=== PATIENT | male | born 1950 | race Two or more races ===

== ENCOUNTER 2019-03-04 16:28 | Inpatient (IN) | payer MEDICARE, MEDICAID ==
[~2019-03-04] VITALS: Ht 165.1 cm; Wt 84.8 kg
[2019-03-04] MEDS ORDERED: GENTAMICIN 80MG PREMIX 100 ML IV ONE (20:15)
[2019-03-04] MEDS ORDERED: VANCOMYCIN 1 G PREMIX 200 ML IV ONE (20:15)
[2019-03-04 21:08] LABS: EOSINOPHILS % 7.2 % (0.0-5.0); HEMATOCRIT. 29.4 % (42.0-52.0); HEMOGLOBIN. 9.5 g/dL (14.0-18.0); LYMPHOCYTES % 22.8 % (20.0-50.0); MEAN CORPUSCULAR HEMOGLOBIN 31.6 pg (28.0-32.0); MEAN CORPUSCULAR VOLUME 97.2 fL (80.0-94.0); MEAN PLATELET VOLUME 7.5 fl (7.4-10.4); PLATELET 254 x1000/uL (130-400); RED BLOOD CELL COUNT 3.02 mill/uL (4.7-6.1); RED CELL DISTRIBUTION WIDTH 16.5 % (11.6-14.6)
[2019-03-04 21:12] LABS: CHLORIDE 110 mEq/L (98-107)
[2019-03-04 21:13] LABS: PROTHROMBIN TIME 10.7 sec (9.6-11.0)
[2019-03-04] MEDS ORDERED: ONDANSETRON HCL 4MG/2ML INJ IV PRN (22:45)
[2019-03-04] MEDS ORDERED: MORPHINE SULFATE 2 MG/ML CPJ (NOT FOR IM USE) IV PRN (22:45)
[2019-03-04] MEDS ORDERED: HYDROCODONE/ACETAMINOPHEN 5/325MG TABLET PO PRN (22:45)
[2019-03-04] MEDS ORDERED: CLONIDINE 0.1MG TABLET PO PRN (22:45)
[2019-03-04 22:52] LABS: CLARITY URINE TURBID (CLEAR); COLOR URINE YELLOW (YELLOW); KETONES URINE NEGATIVE (NEGATIVE); LEUKOCYTE ESTERASE URINE 3+ (NEGATIVE); NITRITE URINE NEGATIVE (NEGATIVE); OCCULT BLOOD URINE TRACE (NEGATIVE); PROTEIN URINE 1+ (NEGATIVE); UROBILINOGEN URINE 0.2 E.U./dL (0.2-1.0)
[2019-03-04] MEDS ORDERED: CEFTRIAXONE 1 G PREMIX 50 ML IV ONE (23:15)
[2019-03-05 12:00] VITALS: BP_SYST 107; BP_SYST 164; BP_DIAS 57; BP_DIAS 82
[2019-03-05] MEDS ORDERED: NIFEDIPINE XL 30MG TAB PO SCH (13:30)
[2019-03-05] MEDS ORDERED: LIDOCAINE HCL 1% 20ML VIAL (Pyxis) INJ ONE (13:56)
[2019-03-05] MEDS ORDERED: SODIUM BICARBONATE 4% (2.4MEQ) 5ML VIAL IV ONE (13:56)
[2019-03-05] MEDS ORDERED: VANCOMYCIN 500 MG PREMIX 100 ML IV NR (14:00)
[2019-03-05] MEDS: ENOXAPARIN 30MG/0.3ML SYR SUBCUT SCH (15:13)
[2019-03-05] MEDS: THIAMINE HCL 100MG TABLET PO SCH (15:13)
[2019-03-05 16:00] VITALS: BP 110/64
[2019-03-05] MEDS ORDERED: FURO40TA5 MT (16:09)
[2019-03-05] MEDS ORDERED: OMEG-119 MT (16:09)
[2019-03-05] MEDS ORDERED: ONDA4TAB5 MT (16:09)
[2019-03-05] MEDS ORDERED: MELA1TAB28 MT (16:09)
[2019-03-05] MEDS ORDERED: VALS80TA30 MT (16:09)
[2019-03-05] MEDS ORDERED: TRU10 EACHEYE (16:09)
[2019-03-05] MEDS ORDERED: DOCU100T MT (16:09)
[2019-03-05] MEDS ORDERED: BISA10SU62 RC (16:09)
[2019-03-05] MEDS ORDERED: NEPVIT MT (16:09)
[2019-03-05] MEDS ORDERED: FERR-71 MT (16:09)
[2019-03-05] MEDS ORDERED: TAMS-11 MT (16:09)
[2019-03-05] MEDS ORDERED: POLY119P18 MT (16:09)
[2019-03-05] MEDS ORDERED: IPRA3AMP9 HHN (16:09)
[2019-03-05] MEDS ORDERED: HYDR-4133 MT (16:09)
[2019-03-05] MEDS ORDERED: GABA-531 MT (16:09)
[2019-03-05] MEDS ORDERED: TOPUD MT (16:09)
[2019-03-05] MEDS ORDERED: LORA1TAB MT (16:09)
[2019-03-05] MEDS ORDERED: METO25TA6 MT (16:09)
[2019-03-05] MEDS ORDERED: ZINC220T4 MT (16:09)
[2019-03-05] MEDS ORDERED: TIMO5DRO32 EACHEYE (16:09)
[2019-03-05] MEDS ORDERED: DIPH25CA83 MT (16:12)
[2019-03-05 20:00] VITALS: BP 115/63
[2019-03-05] MEDS: CEFTRIAXONE 1 G PREMIX 50 ML IV SCH (23:50)
[2019-03-06] VITALS: BP 118/60
[2019-03-06 04:00] VITALS: BP 124/74
[2019-03-06 07:19] LABS: BASOPHILS % 1.5 % (0.0-2.0); EOSINOPHILS % 9.5 % (0.0-5.0); HEMATOCRIT. 29.4 % (42.0-52.0); HEMOGLOBIN. 9.6 g/dL (14.0-18.0); LYMPHOCYTES % 19.5 % (20.0-50.0); MEAN CORPUSCULAR HEMOGLOBIN 31.3 pg (28.0-32.0); MEAN CORPUSCULAR VOLUME 95.9 fL (80.0-94.0); MEAN PLATELET VOLUME 7.6 fl (7.4-10.4); MONOCYTES % 9.6 % (2.0-8.0); NEUTROPHILS % 59.9 % (40.0-76.0); PLATELET 220 x1000/uL (130-400); RED BLOOD CELL COUNT 3.06 mill/uL (4.7-6.1); RED CELL DISTRIBUTION WIDTH 16.3 % (11.6-14.6)
[2019-03-06 08:00] VITALS: BP 139/72
[2019-03-06] MEDS: ENOXAPARIN 30MG/0.3ML SYR SUBCUT SCH (09:18)
[2019-03-06] MEDS: THIAMINE HCL 100MG TABLET PO SCH (09:19)
[2019-03-06] MEDS: NIFEDIPINE XL 60MG TAB PO SCH (09:19)
[2019-03-06] MEDS ORDERED: FLUCONAZOLE 200MG/100ML PREMIX IV ONE (10:30)
[2019-03-06 12:00] VITALS: BP 142/73
[2019-03-06] MEDS ORDERED: FLUCONAZOLE 200 MG/100ML BAG 100 ML IV SCH (12:00)
[2019-03-06 16:48] VITALS: BP 134/67
[2019-03-06 20:00] VITALS: BP 102/63
[2019-03-07] VITALS: BP 117/68
[2019-03-07] MEDS: CEFTRIAXONE 1 G PREMIX 50 ML IV SCH (00:27)
[2019-03-07 04:00] VITALS: BP 103/58
[2019-03-07 06:24] LABS: BASOPHILS % 1.3 % (0.0-2.0); EOSINOPHILS % 7.4 % (0.0-5.0); HEMATOCRIT. 29.1 % (42.0-52.0); HEMOGLOBIN. 9.8 g/dL (14.0-18.0); LYMPHOCYTES % 25.5 % (20.0-50.0); MEAN CORPUSCULAR HEMOGLOBIN 32.3 pg (28.0-32.0); MEAN CORPUSCULAR VOLUME 96.2 fL (80.0-94.0); MEAN PLATELET VOLUME 7.8 fl (7.4-10.4); MONOCYTES % 9.6 % (2.0-8.0); NEUTROPHILS % 56.2 % (40.0-76.0); PLATELET 194 x1000/uL (130-400); RED BLOOD CELL COUNT 3.03 mill/uL (4.7-6.1); RED CELL DISTRIBUTION WIDTH 16.3 % (11.6-14.6)
[2019-03-07 08:00] VITALS: BP 132/71
[2019-03-07] MEDS ORDERED: INSULIN LISPRO 100 UNITS/ML SUBCUT NR (09:30)
[2019-03-07] MEDS: THIAMINE HCL 100MG TABLET PO SCH (09:54)
[2019-03-07] MEDS: ENOXAPARIN 30MG/0.3ML SYR SUBCUT SCH (09:54)
[2019-03-07] MEDS: NIFEDIPINE XL 60MG TAB PO SCH (09:54)
[2019-03-07 12:00] VITALS: BP 103/53
[2019-03-07 16:00] VITALS: BP 125/67
[2019-03-07] MEDS ORDERED: VANCOMYCIN 750 MG PREMIX 150 ML IV SCH (16:00)
[2019-03-08] VITALS (17 sets, daily range): BP systolic 105–144; BP diastolic 51–77
[2019-03-08] MEDS: CEFTRIAXONE 1 G PREMIX 50 ML IV SCH (00:06)
[2019-03-08] MEDS: NIFEDIPINE XL 60MG TAB PO SCH (09:00)
[2019-03-08] MEDS ORDERED: LIDOCAINE HCL 1% 20ML VIAL (Pyxis) INJ ONE (09:07)
[2019-03-08] MEDS ORDERED: SODIUM BICARBONATE 4% (2.4MEQ) 5ML VIAL IV ONE (09:07)
[2019-03-08] MEDS ORDERED: FENTANYL CITRATE/PF 50MCG/ML 2ML VIAL ONE (09:08)
[2019-03-08] MEDS ORDERED: FENTANYL CITRATE/PF 50MCG/ML 2ML VIAL IV ONE (09:25)
[2019-03-08] MEDS: THIAMINE HCL 100MG TABLET PO SCH (10:41)
[2019-03-08] MEDS: ENOXAPARIN 30MG/0.3ML SYR SUBCUT SCH (10:42)
[2019-03-08] MEDS ORDERED: VANCOMYCIN 750 MG PREMIX 150 ML IV SCH (16:00)
== END 2019-03-08 21:50 | DRG 314 ==
LOC: ER 16:28 → EDBEDREQ 20:23 → 7WST 22:19 → EDBEDREQ 22:23 → EDBEDREQTM 22:23 → ENRESERV 03-05 08:20
PROVIDERS: ADMIT Internal Medicine Nephrology; ATTEND Internal Medicine Nephrology
PROC: 5A1D70Z Performance of Urinary Filtration, Intermittent, Less than 6 Hours Per Day (ICD-10-PCS; principal; 2019-03-06)
PROC: 5A1D70Z Performance of Urinary Filtration, Intermittent, Less than 6 Hours Per Day (ICD-10-PCS; 2019-03-08)
PROC: 02HV33Z Insertion of Infusion Device into Superior Vena Cava, Percutaneous Approach (ICD-10-PCS; 2019-03-08)
PROC: B5181ZA Fluoroscopy of Superior Vena Cava using Low Osmolar Contrast, Guidance (ICD-10-PCS; 2019-03-08)
PROC: B548ZZA Ultrasonography of Superior Vena Cava, Guidance (ICD-10-PCS; 2019-03-08)
PROC: 06PYX3Z Removal of Infusion Device from Lower Vein, External Approach (ICD-10-PCS; 2019-03-08)
DX: T82.7XXA Infection and inflammatory reaction due to other cardiac and vascular devices, implants and grafts, initial encounter (principal); N18.6 End stage renal disease; E44.0 Moderate protein-calorie malnutrition; N39.0 Urinary tract infection, site not specified; Z68.1 Body mass index [BMI] 19.9 or less, adult; I13.2 Hypertensive heart and chronic kidney disease with heart failure and with stage 5 chronic kidney disease, or end stage renal disease; I50.42 Chronic combined systolic (congestive) and diastolic (congestive) heart failure; D63.8 Anemia in other chronic diseases classified elsewhere; E11.22 Type 2 diabetes mellitus with diabetic chronic kidney disease; Y83.8 Other surgical procedures as the cause of abnormal reaction of the patient, or of later complication, without mention of misadventure at the time of the procedure; E11.51 Type 2 diabetes mellitus with diabetic peripheral angiopathy without gangrene; E11.621 Type 2 diabetes mellitus with foot ulcer; I48.91 Unspecified atrial fibrillation; N40.0 Benign prostatic hyperplasia without lower urinary tract symptoms; E78.5 Hyperlipidemia, unspecified; F20.9 Schizophrenia, unspecified; E11.42 Type 2 diabetes mellitus with diabetic polyneuropathy; Z79.4 Long term (current) use of insulin; Z99.2 Dependence on renal dialysis; Y92.89 Other specified places as the place of occurrence of the external cause; Z79.899 Other long term (current) drug therapy
CPT/HCPCS: 36415; 36558; 71045; 76937; 77001; 80048; 80053; 80202; 81003; 82962; 83605; 84145; 84484; 85025; 93005; 97161; 99152; 99153; 99285; C1750; C1769; J0696; J1450; J1580; J1650; J3010; J3370; J3490; J7040; G0500